=== PATIENT | male | born 1985 | race Caucasian/White ===

== ENCOUNTER 2020-01-16 14:46 | Inpatient (IN) | payer MEDICAID, OTHER ==
[~2020-01-16] VITALS: Ht 175.3 cm; Wt 113.4 kg
[2020-01-16 17:37] LABS: BASOPHILS % 0.7 % (0.0-2.0); HEMATOCRIT. 43.5 % (42.0-52.0); HEMOGLOBIN. 14.4 g/dL (14.0-18.0); LYMPHOCYTES % 18.8 % (20.0-50.0); MEAN CORPUSCULAR HEMOGLOBIN 27.1 pg (28.0-32.0); MEAN CORPUSCULAR VOLUME 81.6 fL (80.0-94.0); MEAN PLATELET VOLUME 8.6 fl (7.4-10.4); MONOCYTES % 9.1 % (2.0-8.0); NEUTROPHILS % 67.4 % (40.0-76.0); PLATELET 260 x1000/uL (130-400); RED BLOOD CELL COUNT 5.33 mill/uL (4.7-6.1); RED CELL DISTRIBUTION WIDTH 14.7 % (11.6-14.6)
[2020-01-16 17:42] LABS: CHLORIDE 108 mEq/L (98-107)
[2020-01-16 17:48] LABS: CLARITY URINE CLEAR (CLEAR); COLOR URINE YELLOW (YELLOW); KETONES URINE NEGATIVE (NEGATIVE); LEUKOCYTE ESTERASE URINE NEGATIVE (NEGATIVE); NITRITE URINE NEGATIVE (NEGATIVE); OCCULT BLOOD URINE NEGATIVE (NEGATIVE); PROTEIN URINE NEGATIVE (NEGATIVE); SPECIFIC GRAVITY URINE 1.026 (1.005-1.030)
[2020-01-16] MEDS ORDERED: MORPHINE SULFATE 4 MG/ML CPJ (NOT FOR IM USE) IV ONE ×2 (18:00→21:00)
[2020-01-16] MEDS ORDERED: KETOROLAC 15MG/ML VIAL IV ONE (18:00)
[2020-01-16] MEDS ORDERED: PIPERACILLIN/TAZOBACTAM 3.375GM/50ML PREMIX IV ONE (19:45)
[2020-01-16] MEDS ORDERED: SODIUM CHLORIDE 0.9% 1,000 ML IV ONE (19:45)
[2020-01-16] MEDS ORDERED: PIPERACILLIN/TAZ 3.375G PREMIX 50 ML IV NR (19:47)
[2020-01-16] MEDS ORDERED: ONDANSETRON HCL 4MG/2ML INJ IV ONE (21:00)
[2020-01-16] MEDS ORDERED: IOHEXOL-300 100 ML BOTTLE ONE (23:13)
[2020-01-17 11:00] VITALS: BP 110/70
[2020-01-17 12:00] VITALS: BP 110/70
[2020-01-17] MEDS ORDERED: ACETAMINOPHEN 325MG TABLET PO PRN (12:15)
[2020-01-17] MEDS ORDERED: PANTOPRAZOLE SODIUM 40 MG/VIAL IV SCH (12:15)
[2020-01-17] MEDS: MORPHINE SULFATE 2 MG/ML CPJ (NOT FOR IM USE) IV PRN ×3 (13:24→23:14)
[2020-01-17] MEDS: ONDANSETRON HCL 4MG/2ML INJ IV PRN (13:24)
[2020-01-17] MEDS: METRONIDAZOLE 500 MG PREMIX 100 ML IV SCH ×2 (13:42→22:40)
[2020-01-17] MEDS: DEXT 5%/0.45% NACL 1000ML 1,000 ML IV SCH (13:42)
[2020-01-17] MEDS: LEVOFLOXACIN 500MG PREMIX 100 ML IV SCH (13:43)
[2020-01-17 16:00] VITALS: BP 101/56
[2020-01-17] MEDS: NICOTINE 14MG PATCH TD SCH (16:21)
[2020-01-17 20:00] VITALS: BP 127/85
[2020-01-18] VITALS (7 sets, daily range): BP systolic 96–123; BP diastolic 58–69
[2020-01-18] MEDS: METRONIDAZOLE 500 MG PREMIX 100 ML IV SCH ×2 (05:13→15:00)
[2020-01-18] MEDS: DEXT 5%/0.45% NACL 1000ML 1,000 ML IV SCH ×2 (05:30→09:06)
[2020-01-18] MEDS: MORPHINE SULFATE 2 MG/ML CPJ (NOT FOR IM USE) IV PRN ×3 (05:52→15:45)
[2020-01-18] MEDS ORDERED: PANTOPRAZOLE SODIUM 40 MG/VIAL IV SCH (09:00)
[2020-01-18] MEDS: NICOTINE 14MG PATCH TD SCH (09:05)
[2020-01-18 09:24] LABS: BASOPHILS % 0.7 % (0.0-2.0); EOSINOPHILS % 3.7 % (0.0-5.0); HEMATOCRIT. 40.9 % (42.0-52.0); HEMOGLOBIN. 13.7 g/dL (14.0-18.0); LYMPHOCYTES % 25.6 % (20.0-50.0); MEAN CORPUSCULAR HEMOGLOBIN 27.3 pg (28.0-32.0); MEAN CORPUSCULAR VOLUME 81.6 fL (80.0-94.0); MEAN PLATELET VOLUME 8.6 fl (7.4-10.4); MONOCYTES % 7.7 % (2.0-8.0); NEUTROPHILS % 62.3 % (40.0-76.0); PLATELET 214 x1000/uL (130-400); RED BLOOD CELL COUNT 5.01 mill/uL (4.7-6.1); RED CELL DISTRIBUTION WIDTH 14.4 % (11.6-14.6)
[2020-01-18 09:31] LABS: CHLORIDE 107 mEq/L (98-107)
[2020-01-18] MEDS: ONDANSETRON HCL 4MG/2ML INJ IV PRN (10:00)
[2020-01-18] MEDS: LEVOFLOXACIN 500MG PREMIX 100 ML IV SCH (10:00)
[2020-01-18] MEDS ORDERED: NICO-681 TD (17:42)
[2020-01-18] MEDS ORDERED: LEVO500T2 MT (17:42)
[2020-01-18] MEDS ORDERED: HYDR-4001 MT (17:42)
[2020-01-18] MEDS ORDERED: METR500T MT (17:42)
== END 2020-01-18 18:50 | disposition home or self-care (01) | DRG 241 ==
LOC: ER 14:46 → MICUSO 21:34 → 6EST 01-17 10:05
PROVIDERS: ADMIT Internal Medicine; ATTEND Internal Medicine
DX: K29.70 Gastritis, unspecified, without bleeding (principal); K57.21 Diverticulitis of large intestine with perforation and abscess with bleeding; K65.1 Peritoneal abscess; Z53.21 Procedure and treatment not carried out due to patient leaving prior to being seen by health care provider; E66.9 Obesity, unspecified; E87.8 Other disorders of electrolyte and fluid balance, not elsewhere classified; F12.90 Cannabis use, unspecified, uncomplicated; F17.210 Nicotine dependence, cigarettes, uncomplicated; Z20.828 Contact with and (suspected) exposure to other viral communicable diseases; M48.061 Spinal stenosis, lumbar region without neurogenic claudication; Z91.14 Patient's other noncompliance with medication regimen; Z91.19 Patient's noncompliance with other medical treatment and regimen; Z71.3 Dietary counseling and surveillance; Z71.6 Tobacco abuse counseling; Z71.51 Drug abuse counseling and surveillance of drug abuser; Z68.36 Body mass index [BMI] 36.0-36.9, adult
CPT/HCPCS: 36415; 74177; 80048; 80053; 81003; 83605; 85025; 87426; 96365; 99285; C9113; J1885; J1956; J2270; J2405; J2543; J3490; J7030; Q9967

== ENCOUNTER 2020-09-28 09:46 | Emergency (ER) | payer MEDICAID ==
[~2020-09-28] VITALS: Ht 175.3 cm; Wt 119.0 kg
[~2020-09-28 09:46] MED LIST: HYDR-4001 MT; LEVO500T2 MT; METR500T MT; NICO-681 TD
[2020-09-28] MEDS ORDERED: IBUP-2029 MT (10:12)
[2020-09-28] MEDS ORDERED: DOXY150T15 MT (10:12)
[2020-09-28] MEDS ORDERED: IBUPROFEN 600MG TABLET PO ONE (10:15)
[2020-09-28 10:24] VITALS: BP 112/78
== END 2020-09-28 10:24 | disposition home or self-care (01) ==
LOC: ER 09:46
DX: S70.362A Insect bite (nonvenomous), left thigh, initial encounter (principal); L03.116 Cellulitis of left lower limb; W57.XXXA Bitten or stung by nonvenomous insect and other nonvenomous arthropods, initial encounter; Y93.9 Activity, unspecified; Y92.9 Unspecified place or not applicable
CPT/HCPCS: 99283

== ENCOUNTER 2021-01-22 10:20 | Emergency (ER) | payer MEDICAID ==
[~2021-01-22] VITALS: Ht 175.3 cm; Wt 101.3 kg
[~2021-01-22 10:20] MED LIST changes: +DOXY150T15 MT; +IBUP-2029 MT
[2021-01-22 10:28] VITALS: BP 122/81
== END 2021-01-22 15:35 | disposition home or self-care (01) ==
LOC: ER 10:20
DX: Z46.89 Encounter for fitting and adjustment of other specified devices (principal); M54.30 Sciatica, unspecified side; Z98.890 Other specified postprocedural states
CPT/HCPCS: 99281

== ENCOUNTER 2021-01-26 09:49 | Emergency (ER) | payer MEDICAID ==
[~2021-01-26] VITALS: Ht 175.3 cm; Wt 100.0 kg
[2021-01-26 10:09] VITALS: BP 110/78
== END 2021-01-26 13:05 | disposition left against medical advice (07) ==
LOC: ER 09:56
DX: Z48.01 Encounter for change or removal of surgical wound dressing (principal); F12.10 Cannabis abuse, uncomplicated; F15.10 Other stimulant abuse, uncomplicated; Z98.890 Other specified postprocedural states; Z79.899 Other long term (current) drug therapy
CPT/HCPCS: 99281

== ENCOUNTER 2021-03-25 08:38 | Emergency (ER) | payer MEDICAID ==
[~2021-03-25] VITALS: Ht 175.3 cm; Wt 115.0 kg
[2021-03-25 09:37] VITALS: BP 128/56
== END 2021-03-25 09:58 | disposition home or self-care (01) ==
LOC: ER 08:38
DX: Z43.3 Encounter for attention to colostomy (principal); F12.10 Cannabis abuse, uncomplicated; F15.10 Other stimulant abuse, uncomplicated; Z98.890 Other specified postprocedural states
CPT/HCPCS: 99281

== ENCOUNTER 2021-04-28 08:16 | Emergency (ER) | payer MEDICAID ==
[~2021-04-28] VITALS: Ht 175.3 cm; Wt 104.0 kg
[2021-04-28 08:22] VITALS: BP 140/82
== END 2021-04-28 08:45 | disposition home or self-care (01) ==
LOC: ER 08:16
DX: Z43.3 Encounter for attention to colostomy (principal)
CPT/HCPCS: 99281

== ENCOUNTER 2024-07-22 13:01 | Emergency (ER) | payer MEDICAID ==
[~2024-07-22] VITALS: Ht 175.3 cm; Wt 113.4 kg
[~2024-07-22 13:01] MED LIST changes: -DOXY150T15 MT; +DOXY150T23 MT; +TOPUD PO
[2024-07-22 13:06] VITALS: O2SAT 99
[2024-07-22 13:07] VITALS: BP 107/75; PULSE 90; RESP 16; TEMP 37.1; O2SAT 98
[2024-07-22 13:36] LABS: BASOPHILS % 0.7 % (0.0-2.0); EOSINOPHILS % 4.3 % (0.0-5.0); HEMATOCRIT. 47.6 % (42.0-52.0); HEMOGLOBIN. 15.9 g/dL (14.0-18.0); LYMPHOCYTES % 22.4 % (20.0-50.0); MEAN CORPUSCULAR HEMOGLOBIN 28.4 pg (28.0-32.0); MEAN CORPUSCULAR HGB CONC 33.5 g/dL (31.0-37.0); MEAN CORPUSCULAR VOLUME 84.8 fL (80.0-94.0); MEAN PLATELET VOLUME 9.5 fl (7.4-10.4); MONOCYTES % 10.4 % (2.0-8.0); NEUTROPHILS % 62.2 % (40.0-76.0); PLATELET 170 x1000/uL (130-400); RED BLOOD CELL COUNT 5.61 mill/uL (4.7-6.1); RED CELL DISTRIBUTION WIDTH 14.9 % (11.6-14.6); WHITE BLOOD COUNT 7.8 x1000/uL (4.5-11.0)
[2024-07-22 13:55] LABS: CHLORIDE 109 mEq/L (98-107); POTASSIUM 3.6 mEq/L (3.5-5.1); SODIUM 140 mEq/L (136-145)
[2024-07-22 13:56] LABS: CARBON DIOXIDE 26 mEq/L (21-32)
[2024-07-22 14:01] LABS: CREATININE 0.9 mg/dL (0.6-1.3); GLUCOSE 105 mg/dL (70-105); UREA NITROGEN BLOOD 10 mg/dL (9-23)
[2024-07-22] MEDS: KETOROLAC 30MG/ML VIAL IM ONE (14:37)
[2024-07-22 16:14] LABS: ALANINE AMINOTRANSFERASE 15 IU/L (10-49); ALBUMIN 4.2 g/dL (3.2-4.8); ASPARTATE AMINOTRANSFERASE 19 IU/L (<34); BILIRUBIN DIRECT 0.2 mg/dL (<=3.0); BILIRUBIN TOTAL 0.5 mg/dL (0.1-1.0); PROTEIN TOTAL 7.2 g/dL (6.0-8.3)
== END 2024-07-22 18:30 | disposition left against medical advice (07) ==
LOC: ER 13:11
DX: R10.84 Generalized abdominal pain (principal); F12.90 Cannabis use, unspecified, uncomplicated; F15.90 Other stimulant use, unspecified, uncomplicated; Z93.3 Colostomy status
CPT/HCPCS: 99283; 80076; 80048; 83690; 85025; 36415; 96372; J1885